=== PATIENT | male | born 1970 | race Caucasian/White ===

== ENCOUNTER → 2017-12-23 | Outpatient (CLI) | payer OTHER ==
[2017-12-23 19:45] LABS: CREATININE FOR GFR 1.06 MG/DL (0.70-1.30); GLOMERULAR FILTRATION RATE > 60.0 (>60)
[2017-12-23 19:45] LABS: BLOOD UREA NITROGEN 14 MG/DL (7-18)
== END ==
LOC: M WUC 15:28
DX: M79.641 Pain in right hand (principal)
CPT/HCPCS: 82565

== ENCOUNTER 2022-04-18 23:53 | Emergency (ER) | payer OTHER ==
[~2022-04-18] VITALS: Ht 170.2 cm; Wt 121.7 kg
[~2022-04-18 23:53] MED LIST: ALEV220T26 PO; ALIEVE PO; ALKA1CHW PO; AMMO12CR7 TOP; CYCL-707 PO; CYCL10TA3 PO; GABA-1171 PO; HYDR-3713 PO; HYDR12CA PO; LEXA1TAB PO; LIPI10TA PO; LOSA100T45 PO; MAGN400T5 PO; MICA80TA3 PO; MOBI15TA PO; NEUR300C PO; PANT40TA29 PO; RANI300T PO; SILD25TA PO; SIMV40TA20 PO; SUMA50TA2 PO; TPS CREAM TOP; TRAMADOL PO; TYLE500T78 PO
[2022-04-18 23:55] VITALS: BP 152/100
[2022-04-19] MEDS ORDERED: METO1TAB87 PO (00:07)
[2022-04-19] MEDS ORDERED: IBUP1TAB6 PO (00:07)
[2022-04-19] MEDS ORDERED: OXYC1TAB23 PO (00:16)
[2022-04-19] MEDS ORDERED: AMOX500T PO (00:16)
[2022-04-19] MEDS ORDERED: METH4TAB8 PO (00:16)
[2022-04-19] MEDS ORDERED: CHLO0.124 MT (00:16)
[2022-04-19 01:14] LABS: BASO # 0.1 10^3/uL (0.0-0.2); BASO % 0.5 % (0.0-1.0); EOS % 0.3 % (0.0-3.0); HEMATOCRIT 42.4 % (42.0-52.0); HEMOGLOBIN 14.1 g/dl (13.5-17.5); LYMPH # 3.6 10^3/uL (1.5-5.0); LYMPH % 28.6 % (24.0-44.0); MEAN CORPUSCULAR HEMOGLOBIN 30.3 pg (27.0-33.0); MEAN CORPUSCULAR HGB CONC 33.3 g/dl (32.0-36.5); MONO # 0.7 10^3/uL (0.0-0.8); MONO % 5.6 % (2.0-8.0); NEUTROPHILS % 62.6 % (36.0-66.0); PLATELET COUNT, AUTOMATED 345 10^3/uL (150-450); RED BLOOD COUNT 4.66 10^6/uL (4.30-6.10); WHITE BLOOD COUNT 12.7 10^3/uL (4.0-10.0)
[2022-04-19 01:37] LABS: CK-MB VALUE MASS 1.3 NG/ML (<3.6); MB/CK RELATIVE INDEX 0.82 (< OR =4)
[2022-04-19 01:46] LABS: ALBUMIN 3.9 GM/DL (3.2-5.2); ALT/SGPT 41 U/L (12-78); BILIRUBIN,DIRECT 0.1 MG/DL (0.0-0.2); BILIRUBIN,TOTAL 0.5 MG/DL (0.2-1.0); BLOOD UREA NITROGEN 33 MG/DL (7-18); CALCIUM LEVEL 8.7 MG/DL (8.5-10.1); CARBON DIOXIDE LEVEL 28 MEQ/L (21-32); CHLORIDE LEVEL 105 MEQ/L (98-107); CREATININE FOR GFR 0.93 MG/DL (0.70-1.30); GLOMERULAR FILTRATION RATE > 60.0 (>56); GLUCOSE, FASTING 113 MG/DL (70-100); LIPASE 90 U/L (73-393); NT-PRO BNP 122 PG/ML (<125); POTASSIUM SERUM 4.5 MEQ/L (3.5-5.1); SODIUM LEVEL 138 MEQ/L (136-145); TOTAL PROTEIN 7.7 GM/DL (6.4-8.2)
== END 2022-04-19 02:05 | disposition left against medical advice (07) ==
LOC: M ED 23:53
DX: Z53.21 Procedure and treatment not carried out due to patient leaving prior to being seen by health care provider (principal)